=== PATIENT | female | born 1965 | race Caucasian/White ===

== ENCOUNTER 2016-11-21 10:26 | Day surgery (SDC) | payer BC ==
[~2016-11-21] VITALS: Ht 160 cm; Wt 63.5 kg
[~2016-11-21 10:26] MED LIST: TUMERIC PO
[2016-11-21 11:00] VITALS: BP 131/75
[2016-11-21] MEDS ORDERED: PERCOCET 5/31 TABLET PO (12:07)
[2016-11-21 13:10] VITALS: BP 118/63
[2016-11-21 14:07] VITALS: BP 118/70
== END 2016-11-21 14:17 | disposition home or self-care (01) ==
LOC: SDC 10:26
DX: N92.6 Irregular menstruation, unspecified (principal); K21.9 Gastro-esophageal reflux disease without esophagitis; Z82.49 Family history of ischemic heart disease and other diseases of the circulatory system
CPT/HCPCS: 88305; J0690; J1100; J1885; J2405; J3010